=== PATIENT | male | born 1985 | race Caucasian/White ===

== ENCOUNTER 2018-03-13 21:19 | Emergency (ER) | payer BC ==
[~2018-03-13] VITALS: Ht 177.8 cm; Wt 65.8 kg
[2018-03-13] MEDS ORDERED: HYDR-3965 PO (23:43)
[2018-03-14 00:51] VITALS: BP 123/81
== END 2018-03-14 00:53 | disposition home or self-care (01) ==
LOC: ER 21:20 → EDSEX 21:20 → ER 03-14 00:53
DX: S42.402A Unspecified fracture of lower end of left humerus, initial encounter for closed fracture (principal); M25.532 Pain in left wrist; Z79.899 Other long term (current) drug therapy; V19.9XXA Pedal cyclist (driver) (passenger) injured in unspecified traffic accident, initial encounter; Y93.55 Activity, bike riding; Y92.410 Unspecified street and highway as the place of occurrence of the external cause; Y99.8 Other external cause status
CPT/HCPCS: 73080; 73110; 99284; A4565; A6449